=== PATIENT | male | born 1995 | race Asian ===

== ENCOUNTER 2022-04-02 21:50 | Emergency (ER) | payer OTHER ==
[~2022-04-02] VITALS: Ht 175.3 cm; Wt 95.3 kg
[2022-04-02 22:05] VITALS: BP 132/60
[2022-04-02] MEDS ORDERED: NAPR-54 PO (23:43)
[2022-04-02 23:56] VITALS: BP 132/60
== END 2022-04-02 23:54 | disposition home or self-care (01) ==
LOC: MED 21:50
DX: S63.602A Unspecified sprain of left thumb, initial encounter (principal); X58.XXXA Exposure to other specified factors, initial encounter; Y93.67 Activity, basketball; Y92.89 Other specified places as the place of occurrence of the external cause; Y99.8 Other external cause status
CPT/HCPCS: 73140; 99283